=== PATIENT | male | born 1955 | race Caucasian/White ===

== ENCOUNTER 2022-10-07 18:33 | Emergency (ER) | payer MEDICARE, OTHER, SELFPAY ==
[2022-10-07 18:33] VITALS: BP 140/79; PULSE 80; RESP 16; TEMP 36.4; O2SAT 96
--- NOTE | 2022-10-07 18:58 | ED_ITS ---
HPI - General Adult General Chief complaint: Syncope Stated complaint: syncope / fall Time Seen by Provider: 10/07/22 18:36 Source: patient, family and EMS Mode of arrival: EMS History of Present Illness HPI narrative: 67-year-old gentleman with a history of widely metastatic prostate cancer on hospice that family called and revoked at 5:30 a.m. this evening. 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 He was told by physicians after his fairly recent craniotomy that he would never be a candidate for additional range surgery and needed to refocus on living his best life. To that end, they currently on a camping trip to [facility] in the spring and have a cruise to [place] scheduled in November. This evening, while walking up 4 steps into their camper something and he fell backwards and ended up landing on his head. It is unclear whether he had a syncopal episode, simply weakness that led to a fall, simply mechanical fall with concussion and retrograde amnesia. He does not remember the fall itself but has clear recollection of the remainder of events of the day. Currently has no complaints of pain. He is on scheduled OxyContin 15 mg b.i.d. at 9:00 a.m. and 9:00 p.m.. Recently is not complaining of additional pain, palpitations, fevers or other symptoms of concern. Related Data Allergies Allergy/AdvReac Type Severity Reaction Status Date / Time infliximab [From Remicade] AdvReac Intermediate Verified 10/07/22 19:10 latex AdvReac Mild Rash Verified 10/07/22 19:09 Review of Systems Review of Systems Narrative: Remainder of complete review of systems is otherwise unremarkable except for that included in the HPI. Exam Initial Vital Signs Initial Vital Signs: Vital Signs Temperature 97.5 F L 10/07/22 18:33 Pulse Rate 80 10/07/22 18:33 Respiratory Rate 16 10/07/22 18:33 Blood Pressure 140/79 10/07/22 18:33 Pulse Oximetry 96 10/07/22 18:33 Oxygen Delivery Method Room Air 10/07/22 18:33 General: Healthy appearing, in no acute distress. Able to give a complete and coherent history. HEENT: Large healed craniotomy scar with some skull deformity secondary to that. Has an approximately 5 cm area of petechial lesion over the occiput on the right side without significant hematoma developing. Moist mucous membranes, normal sclera with reactive pupils, Neck: No midline point tenderness, supple Respiratory: Lungs are clear to auscultation, no wheezing no rales no rhonchi. Full and symmetrical air movement Cardiac: Regular rate and rhythm no murmurs no bruits Abdomen: Soft, nontender, good bowel tones, no flank pain Skin: Pale but otherwise Warm and dry, no rashes Neurologic: Grossly neurologically intact with no obvious asymmetries or abnormalities, cognitively appropriate with fluent speech Extremities: No trauma, well perfused Psych: Cooperative, appropriate insight and affect Course Vital Signs Vital signs: Vital Signs - 8 hr 10/07/22 18:33 Temperature 97.5 F L Pulse Rate 80 Respiratory Rate 16 Blood Pressure 140/79 Pulse Oximetry 96 Oxygen Delivery Method Room Air Medical Decision Making MDM Narrative Medical decision making narrative: CC: Fall with loss of consciousness and head injury. New diagnosis life-threatening potential Complicating co-morbidities: Metastatic prostate cancer on hospice prior to decision to call the ambulance and come to the ER for evaluation. Data collected from: patient, Social determinants of health that may influence the patients condition: Hospice care. Clearly defined goals of care with comfort and ?living his best life? Differential considered: Skull fracture, intracranial hemorrhage, concussion with retrograde amnesia, cardiac syncope, Exam documented above, pertinent findings include: Patient who is alert and cognitively appropriate with some petechial bruising to the occiput and no other injuries appreciated Discussion: 35 minute discussion with patient and his over goals of care. We discussed everything from extensive workup including head scanning and cardiac workup as well as looking for infectious etiology all the way to no additional workup. After long discussion, patient and his are very clear that they want him to be comfortable and enjoy the end of his life. They recognize that surgeons have previously very clearly told him that he is not a candidate for any additional surgery and specifically not a candidate for any ty pe of craniotomy should he have additional head bleeds or metastatic lesions identified in his brain. We talked about doing a CT scan of his head and what to do with results should we find significant pathology. Eventually, with shared decision-making we opted to not proceed with any additional workup. Patient is alert and appropriate, vital signs are stable there is no sign of acute bleeding at this time. No sign of sepsis based on clinical exam. There was cardiac arrhythmia he currently is back in the sinus rhythm at this time. Patient will be discharged home and will contact hospice to see if they can reestablish care. In the meantime, they will continue to enjoy they are camping trip and the tulips that are currently blooming. They are safe for discharge home Discharge Plan Departure Patient Disposition: Home Clinical Impression: RA (retrograde amnesia) Fall Qualifiers: Encounter type: initial encounter Qualified Code(s): W19.XXXA - Unspecified fall, initial encounter Concussion Qualifiers: Encounter type: initial encounter Loss of consciousness presence/duration: with LOC of 30 min or less Qualified Code(s): S06.0X1A - Concussion with loss of consciousness of 30 minutes or less, initial encounter Activity Restrictions/Additional Instructions: Thank you for coming in today It is difficult to face the end of your life and complications as you get closer to the end of your life. I very much respect your decision to choose hospice and focus on living your very best life. We had a very nice discussion on what type of workup to do in the emergency department and I completely agree with decisions to not do anything beyond our initial exam and discussion. At this time I am going to discharge you home. If you have questions, concerns or there are changes tonight, you can call me at . I am here untill 7:00 a.m. and very happy to talk with you. Please continue all of your usual medications. I would encourage you to contact hospice again to reestablish care. I hope you enjoy the spectacular to balloon in [facility] now and I hope you are able to fully enjoy your trip to [place] in November. Stand Alone Forms: Patient Portal/API
--- NOTE | 2022-10-07 19:13 | PC.NURSE ---
Pt reports he was going up 3 stairs when he passed out and hit his head. Contusion to back of head noted. Pt had a couple minutes of LOC. Pt does not remember event. Pt reports slight headache, but no pain anywhere else. Pt denies blood thinners, denies chest pain and denies SOB. Pt has stage 4 metastatic prostate cancer. is at bedside.
--- NOTE | 2022-10-07 19:20 | PC.NURSE ---
Pt and patient state they talked to the doctor and do not want any additional things done.
[2022-10-07 20:38] VITALS: BP 122/73; PULSE 83; O2SAT 95
== END 2022-10-07 20:20 | disposition home or self-care (01) ==
PROVIDERS: Emergency Provider Emergency Medicine
DX: S06.0X1A Concussion with loss of consciousness of 30 minutes or less, initial encounter (principal); R41.2 Retrograde amnesia; W10.9XXA Fall (on) (from) unspecified stairs and steps, initial encounter
CPT/HCPCS: 99281